=== PATIENT | male | born 1980 | race Caucasian/White ===

== ENCOUNTER 2018-02-07 01:00 | Emergency (ER) | payer SELFPAY ==
[2018-02-07] MEDS ORDERED: LORazepam 1 MG TAB ONE ×2 (01:57→02:49)
[2018-02-07] MEDS ORDERED: LORazepam 2 MG/ML VIAL ONE (01:57)
[2018-02-07] MEDS ORDERED: OLANZapine 5 MG ODT PO ONE ×2 (02:50→02:53)
== END 2018-02-07 06:35 | disposition home or self-care (01) ==
LOC: MED 01:00
DX: F31.9 Bipolar disorder, unspecified (principal)
CPT/HCPCS: 99281; J2060